=== PATIENT | male | born 1945 | race Two or more races ===

== ENCOUNTER 2017-12-19 08:48 | Outpatient (CLI) | payer OTHER ==
[~2017-12-19] VITALS: Ht 180.3 cm; Wt 85.3 kg
[~2017-12-19 08:48] MED LIST: ASA81 MG; DIOVAN160 M1; LIPITOR80 MG; PLAVIX75 MG; REGLAN 10ML5 MG/ML; TRICOR145 MG; ZANTAC150 MG
[2017-12-19] MEDS ORDERED: FLONASE16 GM NASAL (10:49)
== END 2017-12-19 09:10 | disposition home or self-care (01) ==
LOC: OFIC 805 08:48
DX: H90.3 Sensorineural hearing loss, bilateral (principal); H61.21 Impacted cerumen, right ear; J31.0 Chronic rhinitis; J34.2 Deviated nasal septum; J37.0 Chronic laryngitis

== ENCOUNTER 2019-06-07 09:45 | Emergency (ER) | payer OTHER ==
[~2019-06-07] VITALS: Ht 180.3 cm; Wt 85.3 kg
[~2019-06-07 09:45] MED LIST changes: +FLONASE16 GM NASAL
[2019-06-07] MEDS ORDERED: AVAPRO300 MG (10:12)
[2019-06-07] MEDS ORDERED: ASPIR 8181 MG (10:13)
[2019-06-07] MEDS ORDERED: TRICOR145 MG (10:13)
[2019-06-07] MEDS ORDERED: DEXILANT60 MG (10:13)
[2019-06-07] MEDS ORDERED: LIPITOR80 MG (10:13)
[2019-06-07] MEDS ORDERED: TOPROL XL50 M1 (10:14)
[2019-06-07] MEDS ORDERED: ZETIA10 MG (10:14)
[2019-06-07] MEDS ORDERED: FLONASE ALLERG9.9 ML NASAL (15:39)
[2019-06-07] MEDS ORDERED: TESSALON PERLE100 M1 PO (15:39)
[2019-06-07] MEDS ORDERED: AIRBORNE EFFER1 EACH PO (15:39)
[2019-06-07] MEDS ORDERED: MUCINEX DM ER1 EAC1 PO (15:39)
[2019-06-07] MEDS ORDERED: OSEL75CA PO (15:39)
== END 2019-06-07 15:43 | disposition home or self-care (01) ==
LOC: ER 09:45
DX: J11.1 Influenza due to unidentified influenza virus with other respiratory manifestations (principal)